=== PATIENT | male | born 1955 | race Caucasian/White ===

== ENCOUNTER 2016-10-19 13:26 | Inpatient (IN) | payer MEDICAID ==
[~2016-10-19] VITALS: Ht 182.9 cm; Wt 75.8 kg
[~2016-10-19 13:26] MED LIST: ALLO100T30 PO; ASPI-650 PO; ASPI325T4 PO; ATOR20TA9 PO; ATOR40TA78 PO; BICA50TA PO; CELE200C PO; CETI10TA18 PO; DABI150C PO; DOXY100T PO; ERGO500017 PO; FENO145T13 PO; FENO145T32 PO; FENO160T PO; FOLI-17 PO; FURO-93 PO; IBUP-1222 PO; LEUP3.75 IM; LOSA1TAB17 PO; LOSA50TA2 PO; METF500T4 PO; MORP100S3 PO; MORP15TA39 PO; MORP30TA3 PO; MULT-516 PO; MULT-750 PO; OMEP-110 PO; OXYC-302 PO; OXYC5CAP4 PO; OXYC5TAB3 PO; RIVA15TA PO; THIA100T10 PO; THIA100T6 PO
[2016-10-19] MEDS ORDERED: ONDANSETRON 2MG/ML, 2ML IVPush ONE (14:30)
[2016-10-19] MEDS ORDERED: MORPHINE SULFATE 4 MG/ML, 1ML IVPush PRN (14:30)
[2016-10-19] MEDS ORDERED: LORazepam 2 MG/ML, 1ML IVPush ONE (14:30)
[2016-10-19] MEDS ORDERED: SODIUM CHLORIDE FLUSH 10ML SYR IVF ONE (14:30)
[2016-10-19 14:39] LABS: HEMOGLOBIN 8.7 g/dL (13.7-18.0)
[2016-10-19 14:51] LABS: ASPARTATE AMINO TRANSFERASE 28 U/L (15-37); BLOOD UREA NITROGEN 19 mg/dL (7-18)
[2016-10-19] MEDS ORDERED: ONDANSETRON 2MG/ML, 2ML ONE (14:55)
[2016-10-19] MEDS ORDERED: MORPHINE SULFATE 4 MG/ML, 1ML ONE (14:55)
[2016-10-19] MEDS ORDERED: LORazepam 2 MG/ML, 1ML ONE (14:55)
[2016-10-19 15:15] LABS: DIFF TOTAL CELLS COUNTED 100 CELL DIFF
[2016-10-19 15:17] LABS: ANISOCYTOSIS 1+; MICROCYTOSIS 1+
[2016-10-19 15:18] LABS: OVALOCYTES 1+; POLYCHROMASIA 1+
[2016-10-19 15:20] LABS: VERIFY COUNTS? YES
[2016-10-19] MEDS ORDERED: FUROSEMIDE 40 MG/4 ML IV ONE (15:30)
[2016-10-19] MEDS ORDERED: SODIUM CHLORIDE 0.9% 1,000ML IVBOLUS ONE (15:30)
[2016-10-19] MEDS ORDERED: LEVOFLOXACIN/PMX 750MG/150ML 150 ML IVPB ONE (15:30)
[2016-10-19] MEDS ORDERED: FUROSEMIDE 40 MG/4 ML ONE (15:56)
[2016-10-19] MEDS ORDERED: LEVOFLOXACIN/PMX 750MG/150ML 150 ML ONE (15:56)
[2016-10-19] MEDS ORDERED: SENN8.6T4 PO (16:17)
[2016-10-19] MEDS ORDERED: CIPR250T27 PO (16:17)
[2016-10-19] MEDS ORDERED: MORP60CA17 PO (16:17)
[2016-10-19] MEDS ORDERED: DOCU-30 PO (16:17)
[2016-10-19] MEDS ORDERED: ONDANSETRON 2MG/ML, 2ML IVP PRN (17:00)
[2016-10-19] MEDS ORDERED: PIPERACILLIN/TAZO/PMX 3.375GM 50 ML IV SCH (17:00)
[2016-10-19] MEDS ORDERED: ZOLEDRONIC ACID 4MG/100ML 100 ML IV ONE (17:30)
[2016-10-19] MEDS ORDERED: MAGNESIUM SULFATE PMX 2GM/50ML 50 ML IV ONE (17:30)
[2016-10-19] MEDS ORDERED: VANCOMYCIN PER PHARMACY MC PRN (17:30)
[2016-10-19 19:35] VITALS: BP 118/69
[2016-10-19] MEDS ORDERED: PHARMACOKINETIC CONSULTATION MC ONE (20:00)
[2016-10-19] MEDS ORDERED: PHARMACOKINETIC MONITORING MC PRN (20:00)
[2016-10-19] MEDS: SODIUM CHLORIDE 0.9% 1,000 ML IV SCH (20:03)
[2016-10-19] MEDS: VANCOMYCIN 1,400 MG in SODIUM CHLORIDE 0.9% 250 ML IV SCH (20:25)
[2016-10-19] MEDS: FAMOTIDINE 20 MG/2 ML IV SCH (21:00)
[2016-10-19] MEDS: MORPHINE SULFATE 4 MG/ML, 1ML IVPush PRN ×2 (21:00→21:59)
[2016-10-20 02:50] VITALS: BP 115/56
[2016-10-20] MEDS: SODIUM CHLORIDE 0.9% 1,000 ML IV SCH ×5 (04:52→22:50)
[2016-10-20] MEDS: MORPHINE SULFATE 4 MG/ML, 1ML IVPush PRN ×3 (04:55→14:05)
[2016-10-20] MEDS: HYDROcodone/APAP 5/325 TABLET PO PRN ×2 (06:23→16:04)
[2016-10-20 07:06] LABS: ASPARTATE AMINO TRANSFERASE 25 U/L (15-37); BLOOD UREA NITROGEN 13 mg/dL (7-18)
[2016-10-20 07:25] LABS: DIFF TOTAL CELLS COUNTED 100 CELL DIFF
[2016-10-20 07:26] VITALS: BP 129/63
[2016-10-20 07:27] LABS: ANISOCYTOSIS 1+; HYPOCHROMIA 1+; MICROCYTOSIS 1+
[2016-10-20 07:28] LABS: OVALOCYTES 1+; POLYCHROMASIA 1+
[2016-10-20 08:00] LABS: VERIFY COUNTS? YES
[2016-10-20] MEDS: SENNOSIDES 8.6 MG TABLET PO SCH (08:42)
[2016-10-20] MEDS: FAMOTIDINE 20 MG/2 ML IV SCH ×2 (08:42→20:52)
[2016-10-20] MEDS: OXYcodone/APAP 5/325MG TABLET PO SCH (10:27)
[2016-10-20] MEDS: morphine SULFATE 60 MG TABLET.ER PO SCH ×2 (10:27→22:48)
[2016-10-20] MEDS ORDERED: PIPERACILLIN/TAZO/PMX 3.375GM 50 ML IV SCH (11:00)
[2016-10-20] MEDS: PIPERACILLIN/TAZO/PMX 3.375GM 50 ML IV SCH ×3 (12:31→22:49)
[2016-10-20] MEDS: VANCOMYCIN 1,400 MG in SODIUM CHLORIDE 0.9% 250 ML IV SCH (14:07)
[2016-10-20 15:59] VITALS: BP 127/71
[2016-10-20] MEDS ORDERED: ZOLEDRONIC ACID 4MG/100ML 100 ML IV ONE (16:00)
[2016-10-20] MEDS: LORazepam 2 MG/ML, 1ML IVPush PRN ×2 (16:03→22:54)
[2016-10-20] MEDS ORDERED: MAGNESIUM HYDROXIDE 8%, 30ML UDC PO ONE (17:30)
[2016-10-20] MEDS ORDERED: SENNA/DOCUSATE TABLET PO ONE (17:30)
[2016-10-20 18:08] VITALS: BP 126/83
[2016-10-20 20:45] VITALS: BP 132/76
[2016-10-21 03:30] VITALS: BP 130/77
[2016-10-21] MEDS: MORPHINE SULFATE 4 MG/ML, 1ML IVPush PRN ×3 (04:09→16:17)
[2016-10-21] MEDS: SODIUM CHLORIDE 0.9% 1,000 ML IV SCH ×4 (04:15→21:13)
[2016-10-21] MEDS: PIPERACILLIN/TAZO/PMX 3.375GM 50 ML IV SCH (04:23)
[2016-10-21 04:34] LABS: HEMOGLOBIN 7.5 g/dL (13.7-18.0)
[2016-10-21 04:38] LABS: ASPARTATE AMINO TRANSFERASE 27 U/L (15-37); BLOOD UREA NITROGEN 18 mg/dL (7-18)
[2016-10-21 05:03] LABS: DIFF TOTAL CELLS COUNTED 100 CELL DIFF
[2016-10-21 05:05] LABS: ANISOCYTOSIS 1+; HYPOCHROMIA 1+; MICROCYTOSIS 1+; OVALOCYTES 1+; VERIFY COUNTS? YES
[2016-10-21 07:09] VITALS: BP 102/61
[2016-10-21] MEDS ORDERED: CEFTRIAXONE PMX 1GM/50ML 50 ML IV SCH (08:00)
[2016-10-21] MEDS: VANCOMYCIN 1,400 MG in SODIUM CHLORIDE 0.9% 250 ML IV SCH (09:18)
[2016-10-21] MEDS: POTASSIUM CHLORIDE 20 MEQ TAB.ER.PRT PO SCH ×2 (09:19→16:20)
[2016-10-21] MEDS: morphine SULFATE 60 MG TABLET.ER PO SCH ×2 (09:19→21:13)
[2016-10-21] MEDS: FAMOTIDINE 20 MG/2 ML IV SCH ×2 (09:19→21:30)
[2016-10-21] MEDS: OXYcodone/APAP 5/325MG TABLET PO SCH (09:20)
[2016-10-21] MEDS: SENNOSIDES 8.6 MG TABLET PO SCH (09:20)
[2016-10-21] MEDS: LORazepam 2 MG/ML, 1ML IVPush PRN ×2 (09:50→23:11)
[2016-10-21 14:32] VITALS: BP 96/56
[2016-10-21 18:45] VITALS: BP 148/79
[2016-10-21] MEDS ORDERED: ACETAMINOPHEN 650 MG/20.3 ML UDC ONE (19:13)
[2016-10-21] MEDS ORDERED: ACETAMINOPHEN 650 MG/20.3 ML UDC PO PRN (19:30)
[2016-10-21] MEDS ORDERED: ACETAMINOPHEN 325 MG TABLET NG PRN (19:30)
[2016-10-22 01:05] VITALS: BP 127/74
[2016-10-22] MEDS: VANCOMYCIN 1,400 MG in SODIUM CHLORIDE 0.9% 250 ML IV SCH (01:38)
[2016-10-22 05:02] LABS: HEMOGLOBIN 7.6 g/dL (13.7-18.0)
[2016-10-22 05:06] LABS: BLOOD UREA NITROGEN 20 mg/dL (7-18)
[2016-10-22 05:11] LABS: ASPARTATE AMINO TRANSFERASE 29 U/L (15-37)
[2016-10-22 05:39] LABS: DIFF TOTAL CELLS COUNTED 100 CELL DIFF
[2016-10-22 05:41] LABS: ANISOCYTOSIS 1+; MICROCYTOSIS 1+; POLYCHROMASIA 1+; VERIFY COUNTS? YES
[2016-10-22 05:43] LABS: HYPOCHROMIA 1+
[2016-10-22] MEDS: SODIUM CHLORIDE 0.9% 1,000 ML IV SCH (06:22)
[2016-10-22] MEDS: MORPHINE SULFATE 4 MG/ML, 1ML IVPush PRN ×2 (06:22→19:12)
[2016-10-22 06:31] VITALS: BP 150/82
[2016-10-22] MEDS: PIPERACILLIN/TAZO/PMX 3.375GM 50 ML IV SCH ×3 (08:30→19:31)
[2016-10-22] MEDS: FAMOTIDINE 20 MG/2 ML IV SCH (10:04)
[2016-10-22] MEDS: morphine SULFATE 60 MG TABLET.ER PO SCH ×2 (10:31→21:00)
[2016-10-22] MEDS: OXYcodone/APAP 5/325MG TABLET PO SCH (10:31)
[2016-10-22] MEDS: SENNOSIDES 8.6 MG TABLET PO SCH (10:31)
[2016-10-22 13:00] VITALS: BP 111/66
[2016-10-22] MEDS ORDERED: SODIUM CHLORIDE 0.9% 1,000 ML IV SCH ×2 (16:40→17:00)
[2016-10-22] MEDS ORDERED: FAT EMULSIONS IV SCH (17:00)
[2016-10-22] MEDS ORDERED: [UNRECOGNIZED DRUG - OTHER] IV SCH (17:00)
[2016-10-22] MEDS ORDERED: DEXTROSE 70% IV SCH (17:00)
[2016-10-22] MEDS ORDERED: TPN PER PHARMACY MC SCH (17:00)
[2016-10-22] MEDS ORDERED: DEXTROSE 10% 500 ML IV PRN (17:00)
[2016-10-22] MEDS ORDERED: DEXTROSE 50%, 50ML SYRINGE IVPush PRN (17:00)
[2016-10-22] MEDS ORDERED: AMINO ACID 10% IV SCH (17:00)
[2016-10-22 19:50] VITALS: BP 123/86
[2016-10-22] MEDS: INSULIN REGULAR LOW DOSE Q6H X 48HRS SQ-INSULIN SCH (21:00)
[2016-10-22] MEDS: HYDROcodone/APAP 5/325 TABLET PO PRN (21:17)
[2016-10-22] MEDS ORDERED: BISACODYL 10 MG SUPP PR ONE (22:00)
[2016-10-22] MEDS: LORazepam 2 MG/ML, 1ML IVPush PRN (23:05)
[2016-10-23] VITALS (10 sets, daily range): BP systolic 118–151; BP diastolic 70–84
[2016-10-23] MEDS: PIPERACILLIN/TAZO/PMX 3.375GM 50 ML IV SCH ×4 (01:35→22:30)
[2016-10-23] MEDS: VANCOMYCIN 1,400 MG in SODIUM CHLORIDE 0.9% 250 ML IV SCH (02:00)
[2016-10-23] MEDS: MORPHINE SULFATE 4 MG/ML, 1ML IVPush PRN ×4 (02:06→16:15)
[2016-10-23] MEDS: INSULIN REGULAR LOW DOSE Q6H X 48HRS SQ-INSULIN SCH ×4 (03:00→21:12)
[2016-10-23 05:06] LABS: ASPARTATE AMINO TRANSFERASE 28 U/L (15-37); BLOOD UREA NITROGEN 21 mg/dL (7-18)
[2016-10-23 05:49] LABS: DIFF TOTAL CELLS COUNTED 100 CELL DIFF
[2016-10-23 05:53] LABS: ANISOCYTOSIS 1+; HYPOCHROMIA 1+; MICROCYTOSIS 1+; POLYCHROMASIA 1+
[2016-10-23 05:54] LABS: OVALOCYTES 1+
[2016-10-23 05:58] LABS: SCHISTOCYTES 1+
[2016-10-23 06:12] LABS: VERIFY COUNTS? YES
[2016-10-23] MEDS ORDERED: FUROSEMIDE 20 MG/2 ML IVPush ONE (08:00)
[2016-10-23] MEDS: SENNOSIDES 8.6 MG TABLET PO SCH (09:00)
[2016-10-23] MEDS: morphine SULFATE 60 MG TABLET.ER PO SCH ×2 (09:00→21:00)
[2016-10-23] MEDS: OXYcodone/APAP 5/325MG TABLET PO SCH (09:00)
[2016-10-23] MEDS: LORazepam 2 MG/ML, 1ML IVPush PRN ×3 (09:04→21:31)
[2016-10-23] MEDS ORDERED: METHYLNALTREXONE 12 MG/0.6 ML SQ ONE (10:30)
[2016-10-23] MEDS: BISACODYL 10 MG SUPP PR SCH (11:42)
[2016-10-23] MEDS ORDERED: DIPHENHYDRAMINE 50 MG/ML, 1ML IVPush ONE (13:00)
[2016-10-23] MEDS ORDERED: PINK LADY ENEMA 1,000 ML PR ONE (15:00)
[2016-10-23] MEDS ORDERED: FUROSEMIDE 20 MG/2 ML ONE (16:29)
[2016-10-23] MEDS ORDERED: FAT EMULSIONS IV SCH (17:00)
[2016-10-23] MEDS ORDERED: [UNRECOGNIZED DRUG - OTHER] IV SCH (17:00)
[2016-10-23] MEDS ORDERED: DEXTROSE 70% IV SCH (17:00)
[2016-10-23] MEDS ORDERED: AMINO ACID 10% IV SCH (17:00)
[2016-10-23] MEDS: HYDROmorphone 1 MG/ML, 1ML IV PRN ×2 (22:02→23:28)
[2016-10-24] MEDS ORDERED: LORazepam 2 MG/ML, 1ML IVPush ONE
[2016-10-24] MEDS ORDERED: OMNIPAQUE 350 MG/ML, 100ML BOTTLE ONE (00:34)
[2016-10-24 01:50] VITALS: BP 142/76
[2016-10-24] MEDS: VANCOMYCIN 1,400 MG in SODIUM CHLORIDE 0.9% 250 ML IV SCH (02:29)
[2016-10-24] MEDS: INSULIN REGULAR LOW DOSE Q6H X 48HRS SQ-INSULIN SCH ×3 (03:53→15:00)
[2016-10-24] MEDS: HYDROmorphone 1 MG/ML, 1ML IV PRN ×5 (04:17→19:53)
[2016-10-24] MEDS: PIPERACILLIN/TAZO/PMX 3.375GM 50 ML IV SCH ×4 (04:31→21:31)
[2016-10-24 04:59] LABS: HEMOGLOBIN 8.4 g/dL (13.7-18.0)
[2016-10-24 05:02] LABS: BLOOD UREA NITROGEN 17 mg/dL (7-18)
[2016-10-24 05:06] LABS: ASPARTATE AMINO TRANSFERASE 26 U/L (15-37)
[2016-10-24] MEDS: LORazepam 2 MG/ML, 1ML IVPush PRN ×4 (05:06→21:30)
[2016-10-24 05:34] LABS: DIFF TOTAL CELLS COUNTED 100 CELL DIFF
[2016-10-24 05:35] LABS: ANISOCYTOSIS 1+; MICROCYTOSIS 1+; VERIFY COUNTS? YES
[2016-10-24 05:36] LABS: POLYCHROMASIA 1+
[2016-10-24 06:45] VITALS: BP 156/87
[2016-10-24] MEDS: OXYcodone/APAP 5/325MG TABLET PO SCH (09:00)
[2016-10-24] MEDS: SENNOSIDES 8.6 MG TABLET PO SCH (09:00)
[2016-10-24] MEDS: BISACODYL 10 MG SUPP PR SCH (09:00)
[2016-10-24] MEDS: morphine SULFATE 60 MG TABLET.ER PO SCH ×2 (09:00→21:00)
[2016-10-24] MEDS ORDERED: METHYLNALTREXONE 12 MG/0.6 ML SQ ONE (11:00)
[2016-10-24 13:44] VITALS: BP 162/79
[2016-10-24] MEDS ORDERED: DEXTROSE 70% IV SCH ×2 (17:00)
[2016-10-24] MEDS ORDERED: [UNRECOGNIZED DRUG - OTHER] IV SCH (17:00)
[2016-10-24] MEDS ORDERED: [UNRECOGNIZED DRUG - OTHER] IV SCH (17:00)
[2016-10-24] MEDS ORDERED: AMINO ACID 10% IV SCH ×2 (17:00)
[2016-10-24] MEDS ORDERED: FAT EMULSIONS IV SCH ×2 (17:00)
[2016-10-24] MEDS: FILTER, DISP 1.2 MICRON FOR TPN/PVN IV PRN (17:29)
[2016-10-24 19:04] VITALS: BP 156/89
[2016-10-24] MEDS ORDERED: FENTANYL 25 MCG PATCH TD SCH (22:00)
[2016-10-24] MEDS ORDERED: FENTANYL REMOVE PATCH NOTE XX SCH (22:00)
[2016-10-24] MEDS: MORPHINE SULFATE 4 MG/ML, 1ML IVPush PRN (23:07)
[2016-10-25] MEDS: LORazepam 2 MG/ML, 1ML IVPush PRN ×6 (01:20→21:07)
[2016-10-25 02:02] VITALS: BP 147/82
[2016-10-25] MEDS: VANCOMYCIN 1,400 MG in SODIUM CHLORIDE 0.9% 250 ML IV SCH (02:30)
[2016-10-25] MEDS: MORPHINE SULFATE 4 MG/ML, 1ML IVPush PRN ×9 (03:16→23:48)
[2016-10-25] MEDS: PIPERACILLIN/TAZO/PMX 3.375GM 50 ML IV SCH ×4 (04:54→23:48)
[2016-10-25 06:25] LABS: HEMOGLOBIN 8.5 g/dL (13.7-18.0)
[2016-10-25 06:42] VITALS: BP 152/86
[2016-10-25 06:49] LABS: ASPARTATE AMINO TRANSFERASE 27 U/L (15-37); BLOOD UREA NITROGEN 19 mg/dL (7-18)
[2016-10-25 06:51] LABS: DIFF TOTAL CELLS COUNTED 100 CELL DIFF
[2016-10-25 06:52] LABS: VERIFY COUNTS? YES
[2016-10-25 06:53] LABS: ANISOCYTOSIS 1+; MICROCYTOSIS 1+; OVALOCYTES 1+; POLYCHROMASIA 1+
[2016-10-25] MEDS: INSULIN REGULAR LOW DOSE QDAY SQ-INSULIN SCH (08:00)
[2016-10-25] MEDS: BISACODYL 10 MG SUPP PR SCH (09:00)
[2016-10-25] MEDS: morphine SULFATE 60 MG TABLET.ER PO SCH ×2 (09:00→19:04)
[2016-10-25] MEDS: SENNOSIDES 8.6 MG TABLET PO SCH (09:00)
[2016-10-25] MEDS: OXYcodone/APAP 5/325MG TABLET PO SCH (09:00)
[2016-10-25 12:48] VITALS: BP 145/99
[2016-10-25] MEDS ORDERED: DEXTROSE 70% IV SCH (17:00)
[2016-10-25] MEDS ORDERED: [UNRECOGNIZED DRUG - OTHER] IV SCH (17:00)
[2016-10-25] MEDS ORDERED: FAT EMULSIONS IV SCH (17:00)
[2016-10-25] MEDS ORDERED: AMINO ACID 10% IV SCH (17:00)
[2016-10-25] MEDS: FILTER, DISP 1.2 MICRON FOR TPN/PVN IV PRN (17:34)
[2016-10-25 19:46] VITALS: BP 144/94
[2016-10-26] MEDS: LORazepam 2 MG/ML, 1ML IVPush PRN ×4 (01:05→13:29)
[2016-10-26] MEDS: MORPHINE SULFATE 4 MG/ML, 1ML IVPush PRN ×6 (01:22→12:52)
[2016-10-26] MEDS: VANCOMYCIN 1,400 MG in SODIUM CHLORIDE 0.9% 250 ML IV SCH (01:45)
[2016-10-26 02:40] LABS: HEMOGLOBIN 8.7 g/dL (13.7-18.0)
[2016-10-26 02:50] LABS: ASPARTATE AMINO TRANSFERASE 25 U/L (15-37); BLOOD UREA NITROGEN 20 mg/dL (7-18)
[2016-10-26 03:14] LABS: DIFF TOTAL CELLS COUNTED 100 CELL DIFF
[2016-10-26 03:17] LABS: ANISOCYTOSIS 1+; OVALOCYTES 1+; POLYCHROMASIA 1+
[2016-10-26 03:18] LABS: VERIFY COUNTS? YES
[2016-10-26] MEDS ORDERED: morphine SULFATE 10 MG/ML, 1ML ONE (03:22)
[2016-10-26] MEDS: PIPERACILLIN/TAZO/PMX 3.375GM 50 ML IV SCH ×2 (04:41→10:36)
[2016-10-26] MEDS: INSULIN REGULAR LOW DOSE QDAY SQ-INSULIN SCH (08:00)
[2016-10-26 08:18] VITALS: BP 134/88
[2016-10-26] MEDS: morphine SULFATE 60 MG TABLET.ER PO SCH (09:00)
[2016-10-26] MEDS: BISACODYL 10 MG SUPP PR SCH (09:00)
[2016-10-26] MEDS: SENNOSIDES 8.6 MG TABLET PO SCH (09:00)
[2016-10-26] MEDS: OXYcodone/APAP 5/325MG TABLET PO SCH (09:00)
[2016-10-26 14:26] VITALS: BP 144/81
[2016-10-26] MEDS ORDERED: AMINO ACID 10% IV SCH (17:00)
[2016-10-26] MEDS ORDERED: [UNRECOGNIZED DRUG - OTHER] IV SCH (17:00)
[2016-10-26] MEDS ORDERED: FAT EMULSIONS IV SCH (17:00)
[2016-10-26] MEDS ORDERED: DEXTROSE 70% IV SCH (17:00)
[2016-10-27] MEDS ORDERED: [UNRECOGNIZED DRUG - REMARK] (17:49)
== END 2016-10-26 14:40 | disposition hospice, home (50) | DRG 871 ==
LOC: ED 16:38 → EDIP 16:40 → 3NW 19:31
PROVIDERS: ADMIT Internal Medicine; ATTEND Internal Medicine
PROC: 0T9B70Z Drainage of Bladder with Drainage Device, Via Natural or Artificial Opening (ICD-10-PCS; 2016-10-19)
PROC: 30233N1 Transfusion of Nonautologous Red Blood Cells into Peripheral Vein, Percutaneous Approach (ICD-10-PCS; principal; 2016-10-23)
DX: A41.9 Sepsis, unspecified organism (principal); J18.9 Pneumonia, unspecified organism; E43 Unspecified severe protein-calorie malnutrition; G93.41 Metabolic encephalopathy; C49.5 Malignant neoplasm of connective and soft tissue of pelvis; N39.0 Urinary tract infection, site not specified; C79.51 Secondary malignant neoplasm of bone; N13.30 Unspecified hydronephrosis; M84.454A Pathological fracture, pelvis, initial encounter for fracture; E87.0 Hyperosmolality and hypernatremia; E11.9 Type 2 diabetes mellitus without complications; Z66 Do not resuscitate; E83.52 Hypercalcemia; D50.9 Iron deficiency anemia, unspecified; Z16.11 Resistance to penicillins; B95.8 Unspecified staphylococcus as the cause of diseases classified elsewhere; K59.00 Constipation, unspecified; R31.9 Hematuria, unspecified; E86.0 Dehydration; G89.29 Other chronic pain; R65.20 Severe sepsis without septic shock; D75.89 Other specified diseases of blood and blood-forming organs; Z51.5 Encounter for palliative care; R15.9 Full incontinence of feces; E87.6 Hypokalemia; Z79.891 Long term (current) use of opiate analgesic; Z86.718 Personal history of other venous thrombosis and embolism; Z68.22 Body mass index [BMI] 22.0-22.9, adult; Z87.891 Personal history of nicotine dependence; Z88.0 Allergy status to penicillin; Z85.46 Personal history of malignant neoplasm of prostate
CPT/HCPCS: 36415; 36569; 70450; 71010; 74177; 76937; 77001; 80053; 80202; 81001; 82306; 82310; 82330; 82397; 82962; 83605; 83735; 83880; 83970; 84100; 84134; 84145; 84478; 85025; 85610; 85730; 86850; 86900; 86923; 87040; 87077; 87086; 87186; 93005; 96365; 96366; 96375; J0610; J0696; J1170; J1940; J1956; J2405; J2543; J3370; J3475; Q9967; C1751; J1200; J2060; J3420; J3489; J7030; J7050; P9016; S0028

== ENCOUNTER 2016-10-26 14:15 | Inpatient (IN) | payer OTHER ==
[~2016-10-26] VITALS: Ht 180.3 cm; Wt 75.8 kg
[~2016-10-26 14:15] MED LIST changes: +CIPR250T27 PO; +DOCU-30 PO; +MORP60CA17 PO; +SENN8.6T4 PO
[2016-10-26] MEDS ORDERED: MORPHINE SULFATE 4 MG/ML, 1ML IVPush PRN (15:00)
[2016-10-26] MEDS ORDERED: SCOPOLAMINE PATCH, 1.5MG PATCH.TD72 TD PRN (15:00)
[2016-10-26] MEDS ORDERED: ATROPINE OPHTH SOLN 1%, 5ML BC PRN (15:00)
[2016-10-26] MEDS: morphine SULFATE ORAL.CONC 20 MG/ML SL PRN ×2 (15:27→17:54)
[2016-10-26] MEDS: PLEASE ENTER HEIGHT AND WEIGHT MC SCH ×2 (15:30→23:30)
[2016-10-26] MEDS: LORazepam 2 MG/ML, 1ML IVPush PRN (15:31)
[2016-10-26] MEDS: LORazepam INTENSOL 2 MG/ML SL PRN ×2 (17:55→21:58)
[2016-10-26] MEDS: morphine SULFATE 125 MG in SODIUM CHLORIDE 0.9% 237.5 ML IV PRN (18:47)
[2016-10-27] MEDS: LORazepam INTENSOL 2 MG/ML SL PRN ×3 (01:41→05:49)
[2016-10-27] MEDS: PLEASE ENTER HEIGHT AND WEIGHT MC SCH (07:30)
[2016-10-27] MEDS: morphine SULFATE 125 MG in SODIUM CHLORIDE 0.9% 237.5 ML IV PRN (12:28)
[2016-10-27] MEDS ORDERED: [UNRECOGNIZED DRUG - REMARK] (17:49)
[2016-10-27] MEDS: LORazepam 2 MG/ML, 1ML IVPush PRN (17:57)
== END 2016-10-27 17:35 | disposition hospice, home (50) | DRG 722 ==
LOC: 3NW 14:41
PROVIDERS: ADMIT Student in an Organized Health Care Education/Training Program; ATTEND Student in an Organized Health Care Education/Training Program
DX: C76.3 Malignant neoplasm of pelvis (principal); G93.40 Encephalopathy, unspecified; J69.0 Pneumonitis due to inhalation of food and vomit; N13.30 Unspecified hydronephrosis; M84.454A Pathological fracture, pelvis, initial encounter for fracture; C78.5 Secondary malignant neoplasm of large intestine and rectum; C79.51 Secondary malignant neoplasm of bone; E11.9 Type 2 diabetes mellitus without complications
CPT/HCPCS: J2060; J2270; J7050